=== PATIENT | female | born 2000 | race Caucasian/White ===

== ENCOUNTER → 2023-09-16 07:54 | Outpatient (REF) | payer BC, SELFPAY | LOC: RAD 07:54 | PROVIDERS: ATTENDING PHYSICIAN Family Medicine | DX: M25.561 Pain in right knee (principal); M25.562 Pain in left knee | CPT/HCPCS: 73564 ==

== ENCOUNTER → 2024-07-16 11:25 | Outpatient (REF) | payer BC, SELFPAY | LOC: RAD 11:25 | PROVIDERS: ATTENDING PHYSICIAN Family Medicine; FAMILY PHYSICIAN Physician Assistant | DX: M79.672 Pain in left foot (principal) | CPT/HCPCS: 73630 ==